=== PATIENT | male | born 1985 | race Caucasian/White ===

== ENCOUNTER 2020-09-27 09:43 | Emergency (ER) | payer BC ==
[2020-09-27] MEDS ORDERED: Sodium Chloride 0.9% 1,000 ML IV ONE ×2 (10:05→10:06)
[2020-09-27] MEDS ORDERED: Ondansetron 4 MG/2 ML SDV IVPUSH ONE (10:06)
--- NOTE | 2020-09-27 10:13 | PCM.EKG ---
#1 Interpretation Time: 09:43 EKG Interpretation Comments: 107, sinus tachycardia, nonspecific ST/T findings
--- NOTE | 2020-09-27 10:14 | EDM.PDOC ---
ED HPI GENERAL MEDICAL PROBLEM - General Chief Complaint: Chest Pain Stated Complaint: CHEST PAIN Time Seen by Provider: 09/27/20 09:57 Source of Information: Reports: Patient History Limitations: Reports: No Limitations - History of Present Illness INITIAL COMMENTS - FREE TEXT/NARRATIVE: HISTORY AND PHYSICAL: History of present illness: Patient is a 35-year-old male, with a history of chronic alcohol use, who presents emergency room today with concern of a fast heart rate causing anxiety. Patient states that he did drink heavily last night and states that he drank heavier than he typically does. Patient states he does drink daily but does go an entire work day without drinking and then once he gets home continues to drink. Patient states that he drink "quite a bit "last night and woke up this morning feeling like his heart was racing and was feeling anxious about it so came to the emergency room. Patient states that he is also been nauseous and has vomited nonbilious and nonbloody 2-3 times this morning. Patient states his last alcoholic drink was 5/6 AM he took "a few shots of vodka ". Patient states that he has gone through alcohol rehab in the past but has never had a withdrawal seizure but states that he has gotten the "shakes "before. Patient states that he does not feel like this is withdrawal but more from drinking more than usual. Patient denies any other health history. Patient denies any other substance use. Patient denies fever, chills, chest pain, shortness of breath, or cough. Denies headache, neck stiff ness, change in vision, syncope, or near syncope. Denies abdominal pain, diarrhea, constipation, or dysuria. Has not noted any blood in urine or stool. Patient has been eating and drinking appropriately. Review of systems: As per history of present illness and below otherwise all systems reviewed and negative. Past medical history: As per history of present illness and as reviewed below otherwise noncontributory. Surgical history: As per history of present illness and as reviewed below otherwise noncontributory. Social history: See social history for further information Family history: As per history of present illness and as reviewed below otherwise noncontributory. Physical exam: General: Patient is alert, oriented, and in no acute distress. Patient sitting comfortably on exam table. Patient tachycardic 115 on exam, otherwise vitally stable and reviewed by me. Patient does not appear clinically intoxicated. HEENT: Atraumatic, normocephalic, pupils equal and reactive bilaterally, negative for conjunctival pallor or scleral icterus, mucous membranes dry/tacky, TMs normal bilaterally, throat clear, neck supple, nontender, trachea midline. No drooling or trismus noted. No meningeal signs. No hot potato voice noted. Lungs: Clear to auscultation, breath sounds equal bilaterally, chest nontender. Heart: S1S2, regular rate and rhythm without overt murmur Abdomen: Soft, nondistended, nontender. Negative for masses or hepatosplenomegaly. Negative for costovertebral tenderness. Pelvis: Stable nontender. Genitourinary: Deferred. Rectal: Deferred. Skin: Intact, warm, dry. No lesions or rashes noted. Extremities: Atraumatic, negative for cords or calf pain. Neurovascular unremarkable. Neuro: Awake, alert, oriented. Cranial nerves II through XII unremarkable. Cerebellum unremarkable. Motor and sensory unremarkable throughout. Exam nonfocal. Notes: Patient is a 35-year-old male, with a history of daily alcohol use, who presents to the emergency room secondary to nausea, vomiting, concern for fast heart rate causing anxiety. Upon arrival to the ED, patient is mildly tachycardic 115's on exam is otherwise vitally stable and well-appearing on exam. He does not appear clinically intoxicated and is alert, orientated to person, place and time, and answering questions and communicating appropriately and has capacity to make medical decisions. Patient is not actively vomiting but mucous membranes are dry. Will initiate a 2L NS bolus, obtain basic lab/cardiac labwork, and reassess patient. See Dr. Pfeiffer's dictation for specific EKG interpretation. However, sinus tachycardia with a rate of 107 otherwise no STEMI. Patient eloped the ED prior to discharge. Patient was not seen by myself or nursing staff but IV was removed and laying on patient's bed and he is not able to be contacted to return to the ED. CBC shows an elevated white blood cell count of 14.58, hemoglobin elevation of 17.2, otherwise CBC is unremarkable. CMP shows mild hyponatremia of 135, potassium decreased at 3.4, chloride decreased at 94, carbon dioxide of 17.5. Glucose mildly elevated 133, AST elevated at 55, ALT at 72, and alk phos elevation at 124. Lactate is elevated at 8.4. Salicylate 1.5, acetaminophen less than 2, and at the alcohol 124. Venous blood gas shows a pH of 7.44 with bicarb of 17 which is decreased and PCO2 decreased at 26, although this is a VBG blood gas sample. Patient had eloped to the emergency room before diagnostics had been completed and I was unable to discuss his diagnostics or treatment plan going forward. I did try contacting patient but he did not answer. Patient had removed his own IV and left it on the bed and had eloped the ED before myself or nursing staff had the opportunity discussed with patient any further treatment or care. Diagnostics: EKG, CBC, CMP, lipase, troponin, CXR, lactate, salicylate, acetaminophen, alcohol, VBG Therapeutics: NS bolus x 2, Zofran Prescription: Patient eloped to the ED Impression: Atypical chest pain Chronic alcohol use Transaminitis Patient eloped the emergency room Plan: Patient eloped the emergency room prior to discharge, I was unable to discuss any prior treatment or plan with patient. Definitive disposition and diagnosis as appropriate pending reevaluation and review of above. - Related Data Allergies Allergy/AdvReac Type Severity Reaction Status Date / Time No Known Allergies Allergy Verified 09/27/20 09:46 Home Meds: Home Meds Losartan [Cozaar] 100 mg PO DAILY 09/27/20 [History] Propranolol [Inderal] 40 mg PO TID 09/27/20 [History] Venlafaxine HCl [Venlafaxine ER] 225 mg PO DAILY 09/27/20 [History] allopurinoL [Zyloprim] 300 mg PO DAILY 09/27/20 [History] Omeprazole Magnesium [Prilosec Otc] 20 mg PO BID #30 tablet. 09/28/20 [Rx] Ondansetron [Zofran ODT] 4 mg PO Q6H PRN #12 tab.dis 09/28/20 [Rx] Past Medical History Cardiovascular History: Reports: Hypertension Musculoskeletal History: Reports: Gout Social & Family History - Recreational Drug Use Recreational Drug Use: No ED ROS GENERAL - Review of Systems Review Of Systems: Comprehensive ROS is negative, except as noted in HPI. ED EXAM, GENERAL - Physical Exam Exam: See Below (see dictation) Course - Vital Signs Last Recorded V/S: Last Vital Signs Temp 97.1 F 09/27/20 09:56 Pulse 119 H 09/27/20 11:18 Resp 18 09/27/20 09:56 BP 136/88 09/27/20 11:18 Pulse Ox 100 09/27/20 11:18 - Orders/Labs/Meds Labs: Laboratory Tests 09/27/20 09/27/20 09/27/20 Range/Units 09:50 09:50 09:50 WBC 14.58 H (4.0-11.0) K/uL RBC 5.32 (4.50-5.90) M/uL Hgb 17.2 H (13.0-17.0) g/dL Hct 46.7 (38.0-50.0) % MCV 87.8 (80.0-98.0) fL MCH 32.3 H (27.0-32.0) pg MCHC 36.8 (31.0-37.0) g/dL RDW Std Deviation 47.6 (28.0-62.0) fl RDW Coeff of [place] 15 (11.0-15.0) % Plt Count 377 (150-400) K/uL MPV 9.90 (7.40-12.00) fL Neut % (Auto) 74.6 (48.0-80.0) % Lymph % (Auto) 20.5 (16.0-40.0) % [place] % (Auto) 4.5 (0.0-15.0) % Eos % (Auto) 0.0 (0.0-7.0) % Baso % (Auto) 0.4 (0.0-1.5) % Neut # (Auto) 10.9 H (1.4-5.7) K/uL Lymph # (Auto) 3.0 H (0.6-2.4) K/uL [place] # (Auto) 0.7 (0.0-0.8) K/uL Eos # (Auto) 0.0 (0.0-0.7) K/uL Baso # (Auto) 0.1 (0.0-0.1) K/uL Nucleated RBC % 0.0 /100WBC Nucleated RBCs # 0 K/uL VBG pH (7.31-7.41) VBG pCO2 (41-51) mmHG VBG pO2 mmHG VBG HCO3 (23-28) mEq/L VBG Total CO2 (24-29) mmol/L VBG Base Excess (-2.0-3.0) Sodium 135 L (136-148) mmol/L Potassium 3.4 L (3.5-5.1) mmol/L Chloride 94 L (98-107) mmol/L Carbon Dioxide 17.5 L (21.0-32.0) mmol/L BUN 16 (7.0-18.0) mg/dL Creatinine 1.2 (0.8-1.3) mg/dL Est Cr Clr Drug Dosing 93.25 mL/min Estimated GFR (MDRD) > 60.0 ml/min Glucose 133 H (74-106) mg/dL Lactic Acid (0.4-2.0) mmol/L Calcium 8.2 L (8.5-10.1) mg/dL Total Bilirubin 1.0 (0.2-1.0) mg/dL AST 55 H (15-37) IU/L ALT 72 H (14-63) IU/L Alkaline Phosphatase 124 H (46-116) U/L Troponin I < 0.050 (0.000-0.056) ng/mL Total Protein 7.8 (6.4-8.2) g/dL Albumin 4.2 (3.4-5.0) g/dL Globulin 3.6 (2.6-4.0) g/dL Albumin/Globulin Ratio 1.2 (0.9-1.6) Lipase 50 L (73-393) U/L Salicylates (0-20) mg/dL Acetaminophen ug/mL Ethyl Alcohol mg/dL 09/27/20 09/27/20 09/27/20 Range/Units 11:12 11:12 11:47 WBC (4.0-11.0) K/uL RBC (4.50-5.90) M/uL Hgb (13.0-17.0) g/dL Hct (38.0-50.0) % MCV (80.0-98.0) fL MCH (27.0-32.0) pg MCHC (31.0-37.0) g/dL RDW Std Deviation (28.0-62.0) fl RDW Coeff of [place] (11.0-15.0) % Plt Count (150-400) K/uL MPV (7.40-12.00) fL Neut % (Auto) (48.0-80.0) % Lymph % (Auto) (16.0-40.0) % [place] % (Auto) (0.0-15.0) % Eos % (Auto) (0.0-7.0) % Baso % (Auto) (0.0-1.5) % Neut # (Auto) (1.4-5.7) K/uL Lymph # (Auto) (0.6-2.4) K/uL [place] # (Auto) (0.0-0.8) K/uL Eos # (Auto) (0.0-0.7) K/uL Baso # (Auto) (0.0-0.1) K/uL Nucleated RBC % /100WBC Nucleated RBCs # K/uL VBG pH 7.44 H (7.31-7.41) VBG pCO2 26 L (41-51) mmHG VBG pO2 37 mmHG VBG HCO3 17 L (23-28) mEq/L VBG Total CO2 18 L (24-29) mmol/L VBG Base Excess -5.0 L (-2.0-3.0) Sodium (136-148) mmol/L Potassium (3.5-5.1) mmol/L Chloride (98-107) mmol/L Carbon Dioxide (21.0-32.0) mmol/L BUN (7.0-18.0) mg/dL Creatinine (0.8-1.3) mg/dL Est Cr Clr Drug Dosing mL/min Estimated GFR (MDRD) ml/min Glucose (74-106) mg/dL Lactic Acid 8.4 H* (0.4-2.0) mmol/L Calcium (8.5-10.1) mg/dL Total Bilirubin (0.2-1.0) mg/dL AST (15-37) IU/L ALT (14-63) IU/L Alkaline Phosphatase (46-116) U/L Troponin I (0.000-0.056) ng/mL Total Protein (6.4-8.2) g/dL Albumin (3.4-5.0) g/dL Globulin (2.6-4.0) g/dL Albumin/Globulin Ratio (0.9-1.6) Lipase (73-393) U/L Salicylates 1.5 (0-20) mg/dL Acetaminophen <2.0 ug/mL Ethyl Alcohol 124 mg/dL Meds: Medications Discontinued Medications Generic Name Dose Route Start Last Admin Trade Name Freq PRN Reason Stop Dose Admin Sodium Chloride 1,000 mls @ 999 mls/hr 09/27/20 10:05 09/27/20 10:21 Normal Saline IV 09/27/20 11:05 999 mls/hr BOLUS ONE Administration Sodium Chloride 1,000 mls @ 999 mls/hr 09/27/20 10:06 09/27/20 10:21 Normal Saline IV 09/27/20 11:06 999 mls/hr STAT ONE Administration Multivitamins/Minerals/Vitamin C 1 tab 09/28/20 09:00 Multivitamin Tab PO DAILY GUERA Ondansetron HCl 4 mg 09/27/20 10:06 09/27/20 10:21 Ondansetron 4 Mg/2 Ml Sdv IVPUSH 09/27/20 10:07 4 mg ONETIME ONE Administration Departure - Departure Time of Disposition: 21:58 Disposition: Eloped 07 Clinical Impression: Atypical chest pain, Chronic alcohol use, Eloped from emergency department, Transaminitis - Discharge Information Referrals: PCP,None [Primary Care Provider] - Forms: ED Department Discharge Additional Instructions: Patient eloped to the ED prior to diagnostic completion Sepsis Event Note (ED) - Evaluation Sepsis Screening Result: No Definite Risk
[2020-09-27 10:35] LABS: BLOOD UREA NITROGEN,BUN 16 mg/dL (7.0-18.0); CARBON DIOXIDE,CO2 17.5 mmol/L (21.0-32.0); CHLORIDE,CL 94 mmol/L (98-107); GLUCOSE RANDOM 133 mg/dL (74-106); LIPASE 50 U/L (73-393); POTASSIUM,K 3.4 mmol/L (3.5-5.1); SODIUM,NA 135 mmol/L (136-148)
--- NOTE | 2020-09-27 10:50 | CR ---
INDICATION: Tachycardia. TECHNIQUE: Portable AP chest radiograph. COMPARISON: None available. FINDINGS: Markedly reduced lung volumes with vascular crowding. No focal pulmonary opacity, pneumothorax, or pleural effusion definitively identified. Cardiac and mediastinal contours are within normal limits. IMPRESSION: Low volume study. No acute cardiopulmonary findings definitively identified. Dictated by Ck Ace MD @ 09/27/2020 10:48:28 AM Dictated by: Ck Ace MD @ 09/27/2020 10:48:34 (Electronically Signed)
[2020-09-27 12:01] LABS: ACETAMINOPHEN <2.0 ug/mL
[2020-09-28] MEDS ORDERED: Multivitamin Tab PO SCH (09:00)
== END 2020-09-27 11:31 | disposition left against medical advice (07) ==
LOC: MW.ED 09:43
DX: R07.89 Other chest pain (principal); F10.10 Alcohol abuse, uncomplicated; R74.01 Elevation of levels of liver transaminase levels; M10.9 Gout, unspecified; I10 Essential (primary) hypertension; Z79.899 Other long term (current) drug therapy; Y90.6 Blood alcohol level of 120-199 mg/100 ml
CPT/HCPCS: 36415; 71045; 80053; 80143; 80179; 80307; 82803; 83605; 83690; 84484; 85025; 93005; 96374; 99285; J2405; J7030; 93010; 99284

== ENCOUNTER 2020-09-28 00:01 | Emergency (ER) | payer BC ==
[2020-09-28] MEDS ORDERED: Sodium Chloride 0.9% 1,000 ML IV ONE (00:20)
[2020-09-28] MEDS ORDERED: Sodium Chloride 0.9% 2.5 ML Syringe FLUSH PRN (00:20)
[2020-09-28] MEDS ORDERED: Sodium Chloride 0.9% 10 ML Syringe FLUSH PRN (00:20)
[2020-09-28] MEDS ORDERED: Ondansetron 4 MG/2 ML SDV IVPUSH ONE (00:20)
[2020-09-28 01:05] LABS: BLOOD UREA NITROGEN,BUN 14 mg/dL (7.0-18.0); CARBON DIOXIDE,CO2 29.2 mmol/L (21.0-32.0); CHLORIDE,CL 94 mmol/L (98-107); GLUCOSE RANDOM 148 mg/dL (74-106); POTASSIUM,K 3.5 mmol/L (3.5-5.1); SODIUM,NA 135 mmol/L (136-148)
--- NOTE | 2020-09-28 01:47 | EDM.PDOC ---
ED HPI GENERAL MEDICAL PROBLEM - General Chief Complaint: Neuro Symptoms/Deficits Stated Complaint: DIZZINESS Time Seen by Provider: 09/28/20 00:21 - History of Present Illness INITIAL COMMENTS - FREE TEXT/NARRATIVE: HISTORY AND PHYSICAL: History of present illness: This is a 35-year-old gentleman who presents ER today secondary to feeling dizzy when he lay down in bed to go to sleep tonight. Patient reports that this evening he had approximately 4- 8 shots of vodka. He reports his last alcoholic beverage he had with approximately 8 PM. Patient reports prior to going to sleep he took 2 of his trazodone which he normally takes. He reports when he laid down he felt the room was spinning with him and felt very dizzy so he came to the ER. Patient denies any recent fevers, shakes, chills, diarrhea, dysuria, frequency, urgency, chest pain, shortness of breath, abdominal pain. Patient reports he did feel nauseous and has had a couple episodes of emesis. Patient also is concerned because he has some dark stools over the last day. Patient reports that he is a binge drinker and usually will go 3 weeks with drinking in 3 weeks off. Patient reports that he is drank probably 4 to 5 days this week. Patient denies any chest pain or pain rating to his arms or back. Review of systems: As per history of present illness and below otherwise all systems reviewed and negative. Past medical history: As per history of present illness and as reviewed below otherwise noncontributory. Surgical history: As per history of present illness and as reviewed below otherwise noncontributory. Social history: No reported history of drug abuse. Family history: As per history of present illness and as reviewed below otherwise noncontributory. Physical exam: This patient was seen and evaluated during the 2019 SARS-CoV-2 novel coronavirus pandemic period. Community viral transmission is ongoing at time of this encounter and the emergency department is operating under pandemic response procedures. Constitutional: Patient is oriented to person, place, and time. Appears well- developed and well-nourished. No distress. HEENT: Moist mucous membranes Head: Normocephalic and atraumatic Eyes: Right eye exhibits no discharge. Left eye exhibits no discharge. No scleral icterus Neck: Normal range of motion. No tracheal deviation present. Cardiovascular: Normal rate and regular rhythm. Pulmonary: Effort normal, no respiratory distress. Abdominal: No distention Musculoskeletal: Normal range of motion Neurologic: Alert and oriented to person, place and time. Skin: [place], warm and dry. Psychiatric: Normal mood and affect. Behavior is normal. Judgment and thought content normal. Nursing note and vital signs have been reviewed Rectal: Brown heme-positive stool Diagnostics: [] Therapeutics: [] Assessment and plan: 35-year-old gentleman who presents ER today secondary to vertigo while he was lying flat in bed after drinking and taking his trazodone. Upon arrival to the ED, patient's vital signs are all within normal limits. Patient did have a brown heme-negative rectal exam. Patient's labs revealed hemoglobin of 14. Patient's LFTs are slightly elevated consistent with an individual who binge drinks. I have discussed with the patient the need to cut back significantly on his alcohol use. I feel that he likely started develop an early ulcer. I will start the patient on a proton pump inhibitor and have him follow-up with his primary care doctor early next week. While in the ED, the patient received 1 L of NSS as well as Zofran and he does feel much improved. Patient is ambulating in ED with stable gait and is clinically sober. Patient alcohol level was 0. Reassessment at the time of disposition demonstrates that the patient is in no acute distress. The patient has remained stable throughout the entire ED visit and is without objective evidence for acute process requiring urgent intervention or hospitalization. The patient is stable for discharge, counseling is provided as documented above, discussed symptomatic treatment and specific conditions for return. I have spoken with the patient/caregiver and discussed todays findings, in addition to providing specific details for the plan of care. Questions are answered and there is agreement with the plan. Definitive disposition and diagnosis as appropriate pending reevaluation and review of above. - Related Data Allergies Allergy/AdvReac Type Severity Reaction Status Date / Time No Known Allergies Allergy Verified 09/27/20 09:46 Home Meds: Home Meds Losartan [Cozaar] 100 mg PO DAILY 09/27/20 [History] Propranolol [Inderal] 40 mg PO TID 09/27/20 [History] Venlafaxine HCl [Venlafaxine ER] 225 mg PO DAILY 09/27/20 [History] allopurinoL [Zyloprim] 300 mg PO DAILY 09/27/20 [History] Omeprazole Magnesium [Prilosec Otc] 20 mg PO BID #30 tablet.dr 09/28/20 [Rx] Ondansetron [Zofran ODT] 4 mg PO Q6H PRN #12 tab.dis 09/28/20 [Rx] Past Medical History Cardiovascular History: Reports: Hypertension Musculoskeletal History: Reports: Gout Psychiatric History: Reports: Anxiety - Infectious Disease History Infectious Disease History: Reports: C-Difficile - Past Surgical History GI Surgical History: Reports: Appendectomy Social & Family History - Family History Family Medical History: No Pertinent Family History - Caffeine Use Caffeine Use: Reports: Coffee, Tea - Recreational Drug Use Recreational Drug Use: No ED ROS GENERAL - Review of Systems Review Of Systems: See Below ED EXAM, GENERAL - Physical Exam Exam: See Below Course - Vital Signs Last Recorded V/S: Last Vital Signs Temp Pulse 84 09/28/20 00:16 Resp 18 09/28/20 00:16 BP 157/109 H 09/28/20 00:16 Pulse Ox 97 09/28/20 00:16 - Orders/Labs/Meds Orders: Active Orders 24 hr Category Date Time Status Sodium Chloride 0.9% [Saline Flush] Med 09/28/20 00:20 Active 10 ml FLUSH ASDIRECTED PRN Sodium Chloride 0.9% [Saline Flush] Med 09/28/20 00:20 Active 2.5 ml FLUSH ASDIRECTED PRN Saline Lock Insert [OM.PC] Stat Oth 09/28/20 00:20 Ordered Medication Orders Sodium Chloride (Sodium Chloride 0.9% 10 Ml Syringe) 10 ml FLUSH ASDIRECTED PRN PRN Reason: Keep Vein Open Sodium Chloride (Sodium Chloride 0.9% 2.5 Ml Syringe) 2.5 ml FLUSH ASDIRECTED PRN PRN Reason: Keep Vein Open Labs: Laboratory Tests 09/28/20 09/28/20 Range/Units 00:40 00:40 WBC 10.10 (4.0-11.0) K/uL RBC 4.51 (4.50-5.90) M/uL Hgb 14.4 (13.0-17.0) g/dL Hct 39.9 (38.0-50.0) % MCV 88.5 (80.0-98.0) fL MCH 31.9 (27.0-32.0) pg MCHC 36.1 (31.0-37.0) g/dL RDW Std Deviation 47.9 (28.0-62.0) fl RDW Coeff of [place] 15 (11.0-15.0) % Plt Count 276 (150-400) K/uL MPV 10.00 (7.40-12.00) fL Neut % (Auto) 68.3 (48.0-80.0) % Lymph % (Auto) 21.5 (16.0-40.0) % [place] % (Auto) 9.5 (0.0-15.0) % Eos % (Auto) 0.2 (0.0-7.0) % Baso % (Auto) 0.5 (0.0-1.5) % Neut # (Auto) 6.9 H (1.4-5.7) K/uL Lymph # (Auto) 2.2 (0.6-2.4) K/uL [place] # (Auto) 1.0 H (0.0-0.8) K/uL Eos # (Auto) 0.0 (0.0-0.7) K/uL Baso # (Auto) 0.1 (0.0-0.1) K/uL Nucleated RBC % 0.0 /100WBC Nucleated RBCs # 0 K/uL Sodium 135 L (136-148) mmol/L Potassium 3.5 (3.5-5.1) mmol/L Chloride 94 L (98-107) mmol/L Carbon Dioxide 29.2 (21.0-32.0) mmol/L BUN 14 (7.0-18.0) mg/dL Creatinine 1.1 (0.8-1.3) mg/dL Est Cr Clr Drug Dosing 104.84 mL/min Estimated GFR (MDRD) > 60.0 ml/min Glucose 148 H (74-106) mg/dL Calcium 7.9 L (8.5-10.1) mg/dL Total Bilirubin 1.7 H (0.2-1.0) mg/dL AST 50 H (15-37) IU/L ALT 64 H (14-63) IU/L Alkaline Phosphatase 115 (46-116) U/L Total Protein 7.4 (6.4-8.2) g/dL Albumin 4.0 (3.4-5.0) g/dL Globulin 3.4 (2.6-4.0) g/dL Albumin/Globulin Ratio 1.2 (0.9-1.6) Ethyl Alcohol < 3.0 mg/dL Meds: Medications Generic Name Dose Route Start Last Admin Trade Name Olena PRN Reason Stop Dose Admin Sodium Chloride 10 ml 09/28/20 00:20 Sodium Chloride 0.9% 10 Ml Syringe FLUSH ASDIRECTED PRN Keep Vein Open Sodium Chloride 2.5 ml 09/28/20 00:20 Sodium Chloride 0.9% 2.5 Ml Syringe FLUSH ASDIRECTED PRN Keep Vein Open Discontinued Medications Generic Name Dose Route Start Last Admin Trade Name Olena PRN Reason Stop Dose Admin Sodium Chloride 1,000 mls @ 999 mls/hr 09/28/20 00:20 09/28/20 00:34 Normal Saline IV 09/28/20 01:20 999 mls/hr .Bolus ONE Administration Ondansetron HCl 4 mg 09/28/20 00:20 09/28/20 00:34 Ondansetron 4 Mg/2 Ml Sdv IVPUSH 09/28/20 00:21 4 mg ONETIME ONE Administration Departure - Departure Time of Disposition: 01:45 Disposition: Home, Self-Care 01 Condition: Good Clinical Impression: Heme positive stool, Alcohol use disorder, Vertigo Alcoholic gastritis Qualifiers: Chronicity: unspecified Gastritis bleeding: with bleeding Qualified Code(s): K29.21 - Alcoholic gastritis with bleeding Nausea & vomiting Qualifiers: Vomiting type: unspecified Vomiting Intractability: non-intractable Qualified Code(s): R11.2 - Nausea with vomiting, unspecified - Discharge Information Instructions: Nausea and Vomiting, Adult, Vertigo, [id number], Preventing Hypertension, Hypertension, Adult, Alcohol Use Disorder, Binge-Drinking Information, Adult, Gastritis, Adult, [id number] Referrals: PCP,None [Primary Care Provider] - Additional Instructions: Your seen and evaluated in ER today secondary to vertigo which is most likely related to the trazodone and alcohol use today. Your rectal exam was brown but did have traces of blood noted on her chemical test. Your hemoglobin is well within the normal limits. Your vital signs are otherwise normal. Will be started on a medication called Prilosec to take to help with your stomach. Please make appointment see your family doctor the next 2 to 3 days. You need to start cutting back on your alcohol significantly as the alcohol is causing you to have irritation in your stomach that is likely causing the blood in your stool. The following information is given to patients seen in the emergency department who are being discharged to home. This information is to outline your options for follow-up care. We provide all patients seen in our emergency department with a follow-up referral. The need for follow-up, as well as the timing and circumstances, are variable depending upon the specifics of your emergency department visit. If you don't have a primary care physician on staff, we will provide you with a referral. We always advise you to contact your personal physician following an emergency department visit to inform them of the circumstance of the visit and for follow-up with them and/or the need for any referrals to a consulting specialist. The emergency department will also refer you to a specialist when appropriate. This referral assures that you have the opportunity for follow-up care with a specialist. All of these measure are taken in an effort to provide you with optimal care, which includes your follow-up. Under all circumstances we always encourage you to contact your private physician who remains a resource for coordinating your care. When calling for follow-up care, please make the office aware that this follow-up is from your recent emergency room visit. If for any reason you are refused follow-up, please contact the [facility] Emergency Department at and asked to speak to the emergency department charge nurse. [facility] [address] [place] [id number] [id number] Sepsis Event Note (ED) - Focused Exam Vital Signs: Vital Signs Pulse Resp BP Pulse Ox 09/28/20 00:16 84 18 157/109 H 97 - My Orders Last 24 Hours: My Active Orders 09/28/20 00:20 Sodium Chloride 0.9% [Saline Flush] 10 ml FLUSH ASDIRECTED PRN Sodium Chloride 0.9% [Saline Flush] 2.5 ml FLUSH ASDIRECTED PRN Saline Lock Insert [OM.PC] Stat - Assessment/Plan Last 24 Hours: My Active Orders 09/28/20 00:20 Sodium Chloride 0.9% [Saline Flush] 10 ml FLUSH ASDIRECTED PRN Sodium Chloride 0.9% [Saline Flush] 2.5 ml FLUSH ASDIRECTED PRN Saline Lock Insert [OM.PC] Stat
[2020-09-28] MEDS ORDERED: Pantoprazole 80 MG in Sodium Chloride 0.9% 20 ML IVPUSH ONE (01:48)
== END 2020-09-28 02:12 | disposition home or self-care (01) ==
LOC: MW.ED 00:01
DX: K29.21 Alcoholic gastritis with bleeding (principal); F10.99 Alcohol use, unspecified with unspecified alcohol-induced disorder; R42 Dizziness and giddiness; R19.5 Other fecal abnormalities; I10 Essential (primary) hypertension; M10.9 Gout, unspecified; Z79.899 Other long term (current) drug therapy; Y90.0 Blood alcohol level of less than 20 mg/100 ml
CPT/HCPCS: 36415; 80053; 80307; 85025; 96374; 96375; 99284; C9113; J2405; J7030

== ENCOUNTER 2020-10-15 22:23 | Emergency (ER) | payer BC ==
[2020-10-15] MEDS ORDERED: Sodium Chloride 0.9% 1,000 ML IV ONE ×2 (22:41→23:28)
[2020-10-15] MEDS ORDERED: chlordiazePOXIDE 25 MG Cap PO ONE (22:42)
--- NOTE | 2020-10-15 22:44 | EDM.PDOC ---
ED HPI GENERAL MEDICAL PROBLEM - General Chief Complaint: Drug or Alcohol Abuse Stated Complaint: ALCHOL Time Seen by Provider: 10/15/20 22:35 Source of Information: Reports: Patient History Limitations: Reports: No Limitations - History of Present Illness INITIAL COMMENTS - FREE TEXT/NARRATIVE: Patient is a 35-year-old male presents today for nausea vomiting. Patient. His father states that he drinks regularly has been drinking heavily for the past 5 days. Drinking tonight because he has some nausea. Has not had a drink in the past 3 hours. Denies any tremors or any history of withdrawals he does not drink. Denies any chest pain currently does not have any abdominal pain at the moment patient has no other complaints. - Related Data Allergies Allergy/AdvReac Type Severity Reaction Status Date / Time No Known Allergies Allergy Verified 10/15/20 22:40 Home Meds: Home Meds Losartan [Cozaar] 100 mg PO DAILY 09/27/20 [History] Propranolol [Inderal] 40 mg PO TID 09/27/20 [History] Venlafaxine HCl [Venlafaxine ER] 225 mg PO DAILY 09/27/20 [History] allopurinoL [Zyloprim] 300 mg PO DAILY 09/27/20 [History] Omeprazole Magnesium [Prilosec Otc] 20 mg PO BID #30 tablet.dr 09/28/20 [Rx] Ondansetron [Zofran ODT] 4 mg PO Q6H PRN #12 tab.dis 09/28/20 [Rx] Past Medical History Cardiovascular History: Reports: Hypertension Musculoskeletal History: Reports: Gout Psychiatric History: Reports: Anxiety - Infectious Disease History Infectious Disease History: Reports: C-Difficile - Past Surgical History GI Surgical History: Reports: Appendectomy Social & Family History - Family History Family Medical History: No Pertinent Family History - Caffeine Use Caffeine Use: Reports: Coffee, Tea ED ROS GENERAL - Review of Systems Review Of Systems: See Below Constitutional: Reports: No Symptoms HEENT: Reports: No Symptoms Respiratory: Reports: No Symptoms Cardiovascular: Reports: No Symptoms Endocrine: Reports: No Symptoms GI/Abdominal: Reports: Nausea : Reports: No Symptoms Musculoskeletal: Reports: No Symptoms Skin: Reports: No Symptoms Neurological: Reports: No Symptoms Psychiatric: Reports: No Symptoms Hematologic/Lymphatic: Reports: No Symptoms Immunologic: Reports: No Symptoms ED EXAM, GENERAL - Physical Exam Exam: See Below Exam Limited By: No Limitations General Appearance: Alert, WD/WN, No Apparent Distress Eye Exam: Bilateral Eye: EOMI, PERRL Respiratory/Chest: No Respiratory Distress, Lungs Clear, Normal Breath Sounds Cardiovascular: Normal Peripheral Pulses, Regular Rate, Rhythm GI/Abdominal: Normal Bowel Sounds, Soft, Non-Tender Neurological: Alert, Oriented, CN II-XII Intact, Normal Cognition #1 Interpretation EKG Date: 10/15/20 Time: 22:36 Rhythm: Other (sinus tach) Rate (Beats/Min): 126 ST-T: Normal Course - Vital Signs Last Recorded V/S: Last Vital Signs Temp 97.3 F 10/15/20 22:40 Pulse 138 H 10/15/20 23:24 Resp 22 H 10/15/20 23:24 BP 136/84 10/15/20 23:24 Pulse Ox 97 10/15/20 23:24 - Orders/Labs/Meds Labs: Laboratory Tests 10/15/20 10/15/20 Range/Units 22:40 22:40 WBC 7.47 (4.0-11.0) K/uL RBC 4.84 (4.50-5.90) M/uL Hgb 15.9 (13.0-17.0) g/dL Hct 43.4 (38.0-50.0) % MCV 89.7 (80.0-98.0) fL MCH 32.9 H (27.0-32.0) pg MCHC 36.6 (31.0-37.0) g/dL RDW Std Deviation 50.0 (28.0-62.0) fl RDW Coeff of Rico 15 (11.0-15.0) % Plt Count 207 (150-400) K/uL MPV 9.60 (7.40-12.00) fL Neut % (Auto) 69.8 (48.0-80.0) % Lymph % (Auto) 21.6 (16.0-40.0) % [place] % (Auto) 8.0 (0.0-15.0) % Eos % (Auto) 0.1 (0.0-7.0) % Baso % (Auto) 0.5 (0.0-1.5) % Neut # (Auto) 5.2 (1.4-5.7) K/uL Lymph # (Auto) 1.6 (0.6-2.4) K/uL [place] # (Auto) 0.6 (0.0-0.8) K/uL Eos # (Auto) 0.0 (0.0-0.7) K/uL Baso # (Auto) 0.0 (0.0-0.1) K/uL Nucleated RBC % 0.0 /100WBC Nucleated RBCs # 0 K/uL Sodium 132 L (136-148) mmol/L Potassium 4.1 (3.5-5.1) mmol/L Chloride 93 L (98-107) mmol/L Carbon Dioxide 22.8 (21.0-32.0) mmol/L BUN 10 (7.0-18.0) mg/dL Creatinine 1.0 (0.8-1.3) mg/dL Est Cr Clr Drug Dosing TNP Estimated GFR (MDRD) > 60.0 ml/min Glucose 161 H (74-106) mg/dL Calcium 8.3 L (8.5-10.1) mg/dL Phosphorus 2.3 L (2.6-4.7) mg/dL Magnesium 2.0 (1.8-2.4) mg/dL Total Bilirubin 0.9 (0.2-1.0) mg/dL AST 245 H (15-37) IU/L ALT 323 H (14-63) IU/L Alkaline Phosphatase 189 H (46-116) U/L Total Protein 7.7 (6.4-8.2) g/dL Albumin 4.1 (3.4-5.0) g/dL Globulin 3.6 (2.6-4.0) g/dL Albumin/Globulin Ratio 1.1 (0.9-1.6) Lipase 240 (73-393) U/L Ethyl Alcohol 407 mg/dL Meds: Medications Discontinued Medications Generic Name Dose Route Start Last Admin Trade Name Freq PRN Reason Stop Dose Admin Chlordiazepoxide HCl 50 mg 10/15/20 22:42 10/15/20 23:04 Chlordiazepoxide 25 Mg Cap PO 10/15/20 22:43 50 mg ONETIME ONE Administration Sodium Chloride 1,000 mls @ 999 mls/hr 10/15/20 22:41 10/15/20 23:04 Normal Saline IV 10/15/20 23:41 999 mls/hr .BOLUS ONE Administration Sodium Chloride 1,000 mls @ 999 mls/hr 10/15/20 23:28 10/15/20 23:33 Normal Saline IV 10/16/20 00:28 999 mls/hr .BOLUS ONE Administration Ondansetron HCl 4 mg 10/15/20 23:16 10/15/20 23:21 Ondansetron 4 Mg/2 Ml Sdv IVPUSH 10/15/20 23:17 4 mg ONETIME ONE Administration - Re-Assessments/Exams Free Text/Narrative Re-Assessment/Exam: 10/16/20 00:41 Patient alcohol is 400 patient's father is at bedside will take him home and he will go to [facility] in the morning. Departure - Departure Time of Disposition: 00:41 Disposition: Home, Self-Care 01 Condition: Good Clinical Impression: Alcohol intoxication - Discharge Information *PRESCRIPTION DRUG MONITORING PROGRAM REVIEWED*: Not Applicable *COPY OF PRESCRIPTION DRUG MONITORING REPORT IN PATIENT RASHAAD: Not Applicable Instructions: Alcohol Intoxication, [id number] Referrals: PCP,None [Primary Care Provider] - Forms: ED Department Discharge Additional Instructions: The following information is given to patients seen in the emergency department who are being discharged to home. This information is to outline your options for follow-up care. We provide all patients seen in our emergency department with a follow-up referral. The need for follow-up, as well as the timing and circumstances, are variable depending upon the specifics of your emergency department visit. If you don't have a primary care physician on staff, we will provide you with a referral. We always advise you to contact your personal physician following an emergency department visit to inform them of the circumstance of the visit and for follow-up with them and/or the need for any referrals to a consulting specialist. The emergency department will also refer you to a specialist when appropriate. This referral assures that you have the opportunity for follow-up care with a specialist. All of these measure are taken in an effort to provide you with optimal care, which includes your follow-up. Under all circumstances we always encourage you to contact your private physician who remains a resource for coordinating your care. When calling for follow-up care, please make the office aware that this follow-up is from your recent emergency room visit. If for any reason you are refused follow-up, please contact the [facility] Emergency Department at and asked to speak to the emergency department charge nurse. Please follow up with your primary care physician. If you do not have a primary care physician, see below: [facility] [address] [place], [place] [id number] [facility] [address] [place] [address] You were seen today for alcohol intoxication. We gave you IV fluids to help out and hydrate you up. You can go to a facility called [facility] in the morning for evaluation for your alcohol intoxication they will see you in the morning. If you have any other concerning signs or symptoms please come back to the ED. Sepsis Event Note (ED) - Focused Exam Vital Signs: Vital Signs Temp Pulse Resp BP Pulse Ox 10/15/20 23:24 138 H 22 H 136/84 97 10/15/20 22:40 97.3 F 135 H 20 137/91 H 97 - Assessment/Plan Plan: Patient is a 35-year-old male brought in by his father for nausea vomiting after going on a drinking binge for the past 5 days. Patient has no abdominal tenderness on exam looks well he is slightly tachycardic does not have any signs of withdrawal will provide IV fluids labs and reassess.
[2020-10-15 23:14] LABS: BLOOD UREA NITROGEN,BUN 10 mg/dL (7.0-18.0); CARBON DIOXIDE,CO2 22.8 mmol/L (21.0-32.0); CHLORIDE,CL 93 mmol/L (98-107); GLUCOSE RANDOM 161 mg/dL (74-106); LIPASE 240 U/L (73-393); POTASSIUM,K 4.1 mmol/L (3.5-5.1); SODIUM,NA 132 mmol/L (136-148)
[2020-10-15] MEDS ORDERED: Ondansetron 4 MG/2 ML SDV IVPUSH ONE (23:16)
== END 2020-10-16 00:54 | disposition home or self-care (01) ==
LOC: MW.ED 22:23
DX: F10.129 Alcohol abuse with intoxication, unspecified (principal); M10.9 Gout, unspecified; I10 Essential (primary) hypertension; Z79.899 Other long term (current) drug therapy; Y90.8 Blood alcohol level of 240 mg/100 ml or more
CPT/HCPCS: 36415; 80053; 80307; 83690; 83735; 84100; 85025; 93005; 96374; 99284; A9270; J2405; J7030